=== PATIENT | male | born 1945 | race Caucasian/White ===

== ENCOUNTER → 2016-11-11 | Outpatient (CLI) | payer OTHER, MEDICARE ==
--- NOTE | 2016-11-11 16:39 | DX ---
Bilateral Elbows, Three Views of each History: Pain, gout, and 15.0, [id number] Findings: Left: There is focal soft tissue swelling overlying the olecranon suggestive of olecranon bursitis. There is no associated soft tissue calcification or underlying ulnar erosion. The elbow mahendra int is normally aligned and normal in width. There is an anterior but no posterior fat pad sign. Over all mineralization is normal. Right: The elbow joint is normally aligned and normal in width. Soft tissue swelling overlying the ol ecranon and proximal dorsal ulnar shaft are not associated with soft tissue calcifications or underly ing bone erosion. There is an anterior but no posterior fat pad sign. Overall mineralization is debra l. Hypertrophic change of the distal medial humeral epicondyles consistent with a chronic target inju ry. There is mild hypertrophic change of the medial radial head. Impression: Dorsal soft tissue swelling is bilaterally without radiopaque crystalline deposition.
--- NOTE | 2016-11-11 17:30 | DX ---
Bilateral Hands, 3 Views of Each History: Gout, arthralgia Comparison: None Findings: Left: There are periarticular erosions with a faint calcified dowdy tophus along the radial side of the second DIP joint. There are second and third metacarpal head periarticular erosions wit h lateral hypertrophic spurs. There is mild joint space narrowing of the third metacarpal phalangeal joint. There is malalignment of the scaphoid lunate joint indicating derangement of the scapholunate ligament. Right: There is an erosion of the radial head of the middle phalanx of the second finger with subtle gouty tophus. There are second and third metatarsal carpal head para articular erosions with ulnar h ypertrophic ridges. There is mild joint space narrowing of the third metacarpal phalangeal joint. The re is an old healed mid shaft fifth metacarpal fracture. There is degenerative cyst formation in the third metacarpal head. There is malalignment of the scapholunate joint indicating derangement of the scapholunate ligament. Impression: Gouty arthritic change described above.
== END ==
LOC: BRMIMAGING 15:43
PROVIDERS: ATTEND Internal Medicine
DX: M10.041 Idiopathic gout, right hand (principal); M10.042 Idiopathic gout, left hand; M79.89 Other specified soft tissue disorders
CPT/HCPCS: 73080-PO; 73130-PO